=== PATIENT | female | born 1945 | race Caucasian/White ===

== ENCOUNTER 2019-10-03 06:24 | Day surgery (SDC) | payer MEDICARE, OTHER ==
[~2019-10-03] VITALS: Ht 147.3 cm; Wt 63.5 kg
[~2019-10-03 06:24] MED LIST: CA CIT/VIT1 PO; COREG3.125 MG PO; HYOSCYAMINE0.125 M1 SL; KLS OMEPRAZ20 MG PO; LIPITOR20 M1 PO; MULT VITAMIN PO; PROLIA60 MG/ML SC; VENTOLIN HF1 IN
[2019-10-03 08:45] VITALS: BP 108/70
== END 2019-10-03 09:05 | disposition home or self-care (01) ==
LOC: ENDO 06:24 → ORM 08:00 → ENDO 09:05
PROVIDERS: ATTEND Surgery
PROC: 0DBH8ZX Excision of Cecum, Via Natural or Artificial Opening Endoscopic, Diagnostic (ICD-10-PCS; principal; 2019-10-03)
DX: Z12.11 Encounter for screening for malignant neoplasm of colon (principal); D12.0 Benign neoplasm of cecum; K31.84 Gastroparesis; R21 Rash and other nonspecific skin eruption; Z96.82 Presence of neurostimulator; Z80.0 Family history of malignant neoplasm of digestive organs

== ENCOUNTER 2022-09-21 06:24 | Day surgery (SDC) | payer MEDICARE ==
[~2022-09-21] VITALS: Ht 147.3 cm; Wt 61.2 kg
[~2022-09-21 06:24] MED LIST changes: +GRANISETRON PO
[2022-09-21 08:13] VITALS: BP 126/70
== END 2022-09-21 08:03 | disposition home or self-care (01) ==
LOC: ENDO 06:24 → ORM 07:30 → ENDO 07:30 → ORM 12:45
PROVIDERS: ATTEND Internal Medicine Gastroenterology
PROC: 0DB98ZX Excision of Duodenum, Via Natural or Artificial Opening Endoscopic, Diagnostic (ICD-10-PCS; principal; 2022-09-21)
PROC: 0DB78ZX Excision of Stomach, Pylorus, Via Natural or Artificial Opening Endoscopic, Diagnostic (ICD-10-PCS; 2022-09-21)
DX: K29.50 Unspecified chronic gastritis without bleeding (principal); K44.9 Diaphragmatic hernia without obstruction or gangrene; K29.80 Duodenitis without bleeding; K31.84 Gastroparesis; J44.9 Chronic obstructive pulmonary disease, unspecified; Z96.82 Presence of neurostimulator